=== PATIENT | female | born 1940 | race Caucasian/White ===

== ENCOUNTER → 2023-10-20 | Day surgery (SDC) | payer OTHER | END | disposition home or self-care (01) | LOC: FMAMMOTONE 09:51 | PROVIDERS: ATTEND Physician Assistant | PROC: 0HBT3ZX Excision of Right Breast, Percutaneous Approach, Diagnostic (ICD-10-PCS; principal; 2023-10-20) | DX: D24.1 Benign neoplasm of right breast (principal); N64.89 Other specified disorders of breast; R92.1 Mammographic calcification found on diagnostic imaging of breast | CPT/HCPCS: 19081; 76098-TC-FY; 87899; 88305-TC; A4648 ==

== ENCOUNTER 2024-11-29 12:01 | Inpatient (IN) | payer OTHER ==
[2024-11-29] MEDS: SODIUM CHLORIDE 0.9% 500 ML INFUS.BAG IV ONE (12:45)
[2024-11-29] MEDS: ACETAMINOPHEN 1000 MG/100 ML BAG IVPB ONE (12:45)
[2024-11-29] MEDS: ONDANSETRON 4 MG/2 ML VIAL IVPB ONE (12:45)
[2024-11-29 13:25] LABS: ABSOLUTE IMMATURE GRANULOCYTES 0.16 x10^3/uL (0.0-0.031); BASOPHILS # 0.08 x10^3/uL (0.01-0.08); EOSINOPHIL % 0.1 % (0.7-5.8); EOSINOPHILS # 0.01 x10^3/uL (0.04-0.36); HEMATOCRIT 33.7 % (34.1-44.9); HEMOGLOBIN 10.8 g/dL (11.2-15.7); MEAN CELL VOLUME 88.9 fl (79.4-94.8); MEAN PLT VOLUME 9.1 fl (9.4-12.3); MONOCYTE # 1.05 x10^3/uL (0.24-0.86); MONOCYTE % 5.6 % (4.7-12.5); PLATELET COUNT 555 x10^3/uL (182-369); RDW 13.2 % (12.5-17.0)
[2024-11-29 13:44] LABS: ALBUMIN 3.1 g/dl (3.4-5.0); CALCIUM 10.1 mg/dL (8.5-10.1)
[2024-11-29 13:45] LABS: BLOOD UREA NITROGEN 50.6 mg/dL (7-18); MAGNESIUM 1.4 mg/dL (1.8-2.4)
[2024-11-29 13:48] LABS: CREATININE 1.9 mg/dL (0.55-1.3)
[2024-11-29 13:49] LABS: BILIRUBIN,TOTAL 0.4 mg/dL (0.2-1); TOT PROT 7.2 g/dl (6.4-8.2)
[2024-11-29 14:00] LABS: LACTIC ACID 4.3 mmol/L (0.4-2.0)
[2024-11-29] MEDS ORDERED: VANCOMYCIN 1 GM PREMIX (F) 1 GM/200 ML BAG ONE (14:43)
[2024-11-29] MEDS ORDERED: PIPERACILLIN/TAZOB 3.375 GM 3.375 GM/50 ML BAG IVPB ONE (14:44)
[2024-11-29] MEDS: PIPERACILLIN/TAZOB 3.375 GM 3.375 GM in DEXTROSE 5%-WATER - 50 ML IVPB ONE (14:58)
[2024-11-29] MEDS: LACTATED RINGERS SOLUTION 1000 ML INFUS.BAG IV ONE (15:34)
[2024-11-29] MEDS: VANCOMYCIN 1,000 MG in DEXTROSE 5%-WATER - 250 ML IVPB ONE (16:00)
[2024-11-29 17:24] LABS: EPI CELLS 6 /uL (0-25.1); HYALINE CASTS 0 /uL (0-3.1); PH,URINE 5.5 (5.0-8.0); URINE APPEARANCE CLEAR; URINE BACTERIA 2 /uL (0-1359); URINE BILIRUBIN NEGATIVE (NEGATIVE); URINE COLOR YELLOW; URINE GLUCOSE (UA) 1+ (NEGATIVE); URINE KETONE TRACE (NEGATIVE); URINE LEUK ESTERASE NEGATIVE (NEGATIVE); URINE NITRITE NEGATIVE (NEGATIVE); URINE PROTEIN 1+ (NEGATIVE); URINE RBC 14 /uL (0-23.9); URINE WBC 7 /uL (0-25.8)
[2024-11-29] MEDS ORDERED: ACETAMINOPHEN 500 MG TABLET (FP) PO PRN (19:02)
[2024-11-29] MEDS ORDERED: ONDANSETRON 4 MG/2 ML VIAL IVPUSH PRN (19:02)
[2024-11-29] MEDS ORDERED: MAGNESIUM SULFATE IN WATER 2 GM/50 ML IVPB IVPB ONE (19:30)
[2024-11-29] MEDS: MAGNESIUM SULFATE IN WATER 2 GM/50 ML IVPB IVPB ONE (19:48)
[2024-11-29] MEDS: LACTATED RINGERS SOLUTION 1,000 ML/1,000 ML INFUS.BAG IV SCH (19:48)
[2024-11-29 23:06] VITALS: BMI 22.4
[2024-11-29] MEDS: ATORVASTATIN CA 40 MG TABLET (FP) PO SCH (23:17)
[2024-11-29] MEDS: LATANOPROST 0.005% OPHTH SOLN 2.5ML BOTTLE OU SCH (23:17)
[2024-11-30] MEDS: PIPERACILLIN/TAZOB 2.25 GM 2.25 GM/50 ML BAG IVPB SCH (01:32)
[2024-11-30 09:30] LABS: HEMATOCRIT 26.3 % (34.1-44.9); HEMOGLOBIN 8.6 g/dL (11.2-15.7); MCHC 32.7 g/dl (32.2-35.5); MEAN CELL VOLUME 88.6 fl (79.4-94.8); MEAN PLT VOLUME 8.9 fl (9.4-12.3); PLATELET COUNT 427 x10^3/uL (182-369); RDW 13.2 % (12.5-17.0)
[2024-11-30 09:50] LABS: POTASSIUM 4.8 mmol/L (3.5-5.1)
[2024-11-30 09:55] LABS: CREATININE 1.4 mg/dL (0.55-1.3)
[2024-11-30 09:56] LABS: ALBUMIN 2.4 g/dl (3.4-5.0); BLOOD UREA NITROGEN 44.5 mg/dL (7-18); CALCIUM 8.5 mg/dL (8.5-10.1); PHOSPHOROUS 3.6 mg/dL (2.5-4.9)
[2024-11-30 09:57] LABS: MAGNESIUM 1.6 mg/dL (1.8-2.4); TOT PROT 5.7 g/dl (6.4-8.2)
[2024-11-30 10:01] LABS: BILIRUBIN,TOTAL 0.5 mg/dL (0.2-1)
[2024-11-30] MEDS: SUCRALFATE 1 GM TABLET (FP) PO SCH (10:48)
[2024-11-30] MEDS: PANTOPRAZOLE SODIUM 40 MG VIAL IVPUSH SCH (10:48)
[2024-11-30] MEDS ORDERED: MAGNESIUM 1GM/D5W 100ML - 100 ML IVPB IVPB ONE (14:00)
[2024-11-30] MEDS ORDERED: AMINO ACIDS 4.25%/D5W 1,000 ML IV SCH (15:30)
[2024-11-30] MEDS: THIAMINE HCL 200 MG/2 ML VIAL IVPB SCH (17:07)
[2024-11-30] MEDS: AMINO ACIDS 4.25%/D5W 1,000 ML IV SCH (17:07)
[2024-11-30] MEDS: INSULIN ASPART SLIDING SCALE (NOVOLOG) 1 VIAL SQ SCH (17:48)
[2024-11-30] MEDS: MAGNESIUM 1GM/D5W 100ML - 100 ML IVPB IVPB ONE (17:48)
[2024-12-01] MEDS: ENOXAPARIN NA (PORCINE) 30 MG/0.3 ML DISP.SYRIN SQ SCH (09:16)
[2024-12-01 10:11] LABS: HEMATOCRIT 25.5 % (34.1-44.9); MCHC 31.4 g/dl (32.2-35.5); MEAN CELL VOLUME 90.4 fl (79.4-94.8); MEAN PLT VOLUME 9.1 fl (9.4-12.3); PLATELET COUNT 408 x10^3/uL (182-369); RDW 13.3 % (12.5-17.0)
[2024-12-01 10:40] LABS: POTASSIUM 4.2 mmol/L (3.5-5.1)
[2024-12-01 10:45] LABS: MAGNESIUM 1.6 mg/dL (1.8-2.4)
[2024-12-01 10:49] LABS: CREATININE 1.4 mg/dL (0.55-1.3)
[2024-12-01 10:50] LABS: BLOOD UREA NITROGEN 37.9 mg/dL (7-18); CALCIUM 8.4 mg/dL (8.5-10.1); TOT PROT 5.8 g/dl (6.4-8.2)
[2024-12-01 10:51] LABS: ALBUMIN 2.4 g/dl (3.4-5.0); CHOLESTEROL 111 mg/dL (50-200)
[2024-12-01 10:52] LABS: LDL CHOLESTEROL (ONLY SJRH) 54 mg/dL (5-100)
[2024-12-01 10:53] LABS: PHOSPHOROUS 2.3 mg/dL (2.5-4.9)
[2024-12-01 10:54] LABS: HDL CHOLESTEROL 42 mg/dL (40-60)
[2024-12-01 10:55] LABS: BILIRUBIN,TOTAL 0.4 mg/dL (0.2-1)
[2024-12-01] MEDS: NAPH,MB-DB/K PH,MBDB POWDER PACKET PO ONE (12:44)
[2024-12-01] MEDS: MAGNESIUM 2GM/50ML STERILE WATER IVPB IVPB ONE (12:55)
[2024-12-01] MEDS: CLOTRIMAZOLE 1% CREAM TP SCH (13:43)
[2024-12-02] MEDS: PIPERACILLIN/TAZOB 2.25 GM 2.25 GM/50 ML BAG IVPB SCH (01:57)
[2024-12-02 09:42] LABS: POTASSIUM 4.2 mmol/L (3.5-5.1)
[2024-12-02 09:45] LABS: ABSOLUTE IMMATURE GRANULOCYTES 0.05 x10^3/uL (0.0-0.031); BASOPHILS # 0.09 x10^3/uL (0.01-0.08); EOSINOPHIL % 4.5 % (0.7-5.8); EOSINOPHILS # 0.47 x10^3/uL (0.04-0.36); HEMATOCRIT 26.2 % (34.1-44.9); HEMOGLOBIN 8.1 g/dL (11.2-15.7); MCHC 30.9 g/dl (32.2-35.5); MEAN CELL VOLUME 90.7 fl (79.4-94.8); MEAN PLT VOLUME 9.1 fl (9.4-12.3); MONOCYTE # 0.65 x10^3/uL (0.24-0.86); MONOCYTE % 6.2 % (4.7-12.5); PLATELET COUNT 447 x10^3/uL (182-369); RDW 13.3 % (12.5-17.0)
[2024-12-02 09:47] LABS: Reticulocyte % 1.64 % (0.5-1.7)
[2024-12-02 10:20] LABS: CALCIUM 8.4 mg/dL (8.5-10.1)
[2024-12-02 10:21] LABS: ALBUMIN 2.4 g/dl (3.4-5.0); BLOOD UREA NITROGEN 36.7 mg/dL (7-18)
[2024-12-02 10:24] LABS: CREATININE 1.2 mg/dL (0.55-1.3)
[2024-12-02 10:26] LABS: BILIRUBIN,TOTAL 0.2 mg/dL (0.2-1); TOT PROT 5.8 g/dl (6.4-8.2)
[2024-12-02] MEDS: IRON SUCROSE INJECTION 200 MG in SODIUM CHLORIDE 100 ML IVPB ONE (17:28)
[2024-12-03 08:32] LABS: ABSOLUTE IMMATURE GRANULOCYTES 0.05 x10^3/uL (0.0-0.031); BASOPHILS # 0.07 x10^3/uL (0.01-0.08); EOSINOPHIL % 6.6 % (0.7-5.8); EOSINOPHILS # 0.65 x10^3/uL (0.04-0.36); HEMATOCRIT 24.6 % (34.1-44.9); HEMOGLOBIN 7.7 g/dL (11.2-15.7); MCHC 31.3 g/dl (32.2-35.5); MEAN CELL VOLUME 89.8 fl (79.4-94.8); MEAN PLT VOLUME 9.2 fl (9.4-12.3); MONOCYTE # 0.63 x10^3/uL (0.24-0.86); MONOCYTE % 6.4 % (4.7-12.5); PLATELET COUNT 410 x10^3/uL (182-369); RDW 13.3 % (12.5-17.0)
[2024-12-03 09:44] LABS: POTASSIUM 4.2 mmol/L (3.5-5.1)
[2024-12-03 09:53] LABS: ALBUMIN 2.3 g/dl (3.4-5.0); BLOOD UREA NITROGEN 39.9 mg/dL (7-18); CALCIUM 8.7 mg/dL (8.5-10.1)
[2024-12-03 09:55] LABS: CREATININE 1.2 mg/dL (0.55-1.3)
[2024-12-03 09:57] LABS: BILIRUBIN,TOTAL 0.4 mg/dL (0.2-1); TOT PROT 5.6 g/dl (6.4-8.2)
[2024-12-03 16:34] LABS: MAGNESIUM 1.5 mg/dL (1.8-2.4)
[2024-12-03 17:46] LABS: Reticulocyte % 2.02 % (0.5-1.7)
[2024-12-03] MEDS: POLYETHYLENE GLYCOL (HEALTHYLAX) 3350 17 GM PACKET PO SCH (21:27)
[2024-12-04] MEDS: NAPH,MB-DB/K PH,MBDB POWDER PACKET PO ONE ×2 (07:59→13:39)
[2024-12-04] MEDS: MAGNESIUM SULFATE IN WATER 2 GM/50 ML IVPB IVPB ONE (08:57)
[2024-12-04 10:11] LABS: ABSOLUTE IMMATURE GRANULOCYTES 0.05 x10^3/uL (0.0-0.031); BASOPHILS # 0.08 x10^3/uL (0.01-0.08); EOSINOPHIL % 8.1 % (0.7-5.8); EOSINOPHILS # 0.77 x10^3/uL (0.04-0.36); HEMATOCRIT 26.4 % (34.1-44.9); HEMOGLOBIN 8.3 g/dL (11.2-15.7); MCHC 31.4 g/dl (32.2-35.5); MEAN CELL VOLUME 89.5 fl (79.4-94.8); MEAN PLT VOLUME 8.9 fl (9.4-12.3); MONOCYTE # 0.52 x10^3/uL (0.24-0.86); MONOCYTE % 5.5 % (4.7-12.5); PLATELET COUNT 462 x10^3/uL (182-369); RDW 13.6 % (12.5-17.0)
[2024-12-04 10:15] LABS: INR 1.14 (0.83-1.09); PROTHROMBIN TIME (PATIENT) 12.4 SEC (9.7-13.0)
[2024-12-04 10:37] LABS: POTASSIUM 4.2 mmol/L (3.5-5.1)
[2024-12-04 10:48] LABS: ALBUMIN 2.5 g/dl (3.4-5.0); BLOOD UREA NITROGEN 33.7 mg/dL (7-18); MAGNESIUM 1.9 mg/dL (1.8-2.4)
[2024-12-04 10:51] LABS: CREATININE 1.3 mg/dL (0.55-1.3)
[2024-12-04 10:52] LABS: BILIRUBIN,TOTAL 0.3 mg/dL (0.2-1); PHOSPHOROUS 2.1 mg/dL (2.5-4.9)
[2024-12-04] MEDS: MINERAL OIL/PET HY-PHL TOPICAL OINTMENT 454 GM JAR TP SCH (12:20)
[2024-12-04] MEDS: SODIUM PHOSPHATE - 15 MM in SODIUM CHLORIDE 250 ML IVPB ONE (18:19)
[2024-12-04 22:56] VITALS: RESP 18
[2024-12-05 09:35] LABS: HEMATOCRIT 26.4 % (34.1-44.9); HEMOGLOBIN 8.4 g/dL (11.2-15.7); MCHC 31.8 g/dl (32.2-35.5); MEAN CELL VOLUME 90.7 fl (79.4-94.8); RDW 13.8 % (12.5-17.0)
[2024-12-05 09:51] LABS: POTASSIUM 4.1 mmol/L (3.5-5.1)
[2024-12-05 10:05] LABS: ALBUMIN 2.6 g/dl (3.4-5.0); BLOOD UREA NITROGEN 30.1 mg/dL (7-18); CALCIUM 8.8 mg/dL (8.5-10.1); MAGNESIUM 1.6 mg/dL (1.8-2.4)
[2024-12-05 10:07] LABS: CREATININE 1.3 mg/dL (0.55-1.3)
[2024-12-05 10:08] LABS: PHOSPHOROUS 2.8 mg/dL (2.5-4.9)
[2024-12-05 10:09] LABS: BILIRUBIN,TOTAL 0.4 mg/dL (0.2-1); TOT PROT 6.3 g/dl (6.4-8.2)
[2024-12-05 18:24] LABS: PLATELET COUNT 512 x10^3/uL (182-369)
[2024-12-06 10:03] VITALS: BP 108/56; PULSE 84; TEMP 98
== END 2024-12-06 14:00 | disposition home or self-care (01) | DRG 872 ==
LOC: JER 12:01 → JERBED 17:25 → J6S 21:43
PROVIDERS: ADMIT Internal Medicine; ATTEND Internal Medicine
PROC: B518ZZA Fluoroscopy of Superior Vena Cava, Guidance (ICD-10-PCS; 2024-11-30)
PROC: 0DB78ZX Excision of Stomach, Pylorus, Via Natural or Artificial Opening Endoscopic, Diagnostic (ICD-10-PCS; 2024-11-30)
PROC: 02HV33Z Insertion of Infusion Device into Superior Vena Cava, Percutaneous Approach (ICD-10-PCS; principal; 2024-11-30 14:00)
DX: A41.89 Other specified sepsis (principal); E87.20 Acidosis, unspecified; K31.1 Adult hypertrophic pyloric stenosis; C16.9 Malignant neoplasm of stomach, unspecified; N17.9 Acute kidney failure, unspecified; E44.0 Moderate protein-calorie malnutrition; K25.3 Acute gastric ulcer without hemorrhage or perforation; R65.20 Severe sepsis without septic shock; E11.9 Type 2 diabetes mellitus without complications; I10 Essential (primary) hypertension; E78.5 Hyperlipidemia, unspecified; R21 Rash and other nonspecific skin eruption; K25.9 Gastric ulcer, unspecified as acute or chronic, without hemorrhage or perforation; E83.42 Hypomagnesemia; L89.151 Pressure ulcer of sacral region, stage 1; K59.00 Constipation, unspecified; D64.9 Anemia, unspecified; Z68.22 Body mass index [BMI] 22.0-22.9, adult; K44.9 Diaphragmatic hernia without obstruction or gangrene; K22.2 Esophageal obstruction
CPT/HCPCS: 0241U-QW; 36415; 36569; 71045-TC-FY; 71270-TC; 74176-TC; 80048; 80053; 80061; 81003; 82150; 82378; 82607; 82728; 82962; 83036; 83540; 83550; 83605; 83690; 83735; 84100; 84443; 84484; 85025; 85027; 85610; 86140; 86850; 86900; 86901; 87040; 87086; 88305-TC; 88341-TC; 88342-TC; 93005; 93010; 97116-GP; 97161-GP; 99285-25; J0131; J1756; Q9967

== ENCOUNTER 2024-12-08 21:05 | Inpatient (IN) | payer OTHER ==
[2024-12-08 22:25] LABS: ABSOLUTE IMMATURE GRANULOCYTES 0.18 x10^3/uL (0.0-0.031); BASOPHILS # 0.12 x10^3/uL (0.01-0.08); EOSINOPHIL % 2.6 % (0.7-5.8); EOSINOPHILS # 0.51 x10^3/uL (0.04-0.36); HEMATOCRIT 24.2 % (34.1-44.9); HEMOGLOBIN 7.3 g/dL (11.2-15.7); MCHC 30.2 g/dl (32.2-35.5); MEAN CELL VOLUME 95.3 fl (79.4-94.8); MEAN PLT VOLUME 9.6 fl (9.4-12.3); MONOCYTE # 0.75 x10^3/uL (0.24-0.86); MONOCYTE % 3.8 % (4.7-12.5); PLATELET COUNT 525 x10^3/uL (182-369); RDW 15.3 % (12.5-17.0); Reticulocyte % 3.55 % (0.5-1.7)
[2024-12-08] MEDS: SODIUM CHLORIDE 0.9% 500 ML INFUS.BAG IV ONE (22:31)
[2024-12-08 22:34] LABS: INR 1.13 (0.83-1.09); PROTHROMBIN TIME (PATIENT) 12.3 SEC (9.7-13.0)
[2024-12-08 22:36] LABS: ACTIVATED PTT 34.8 SECONDS (25.2-36.5)
[2024-12-08] MEDS ORDERED: PANTOPRAZOLE SODIUM 80 MG/200 ML BAG IVPB ONE (22:47)
[2024-12-08 22:50] LABS: POTASSIUM 5.1 mmol/L (3.5-5.1)
[2024-12-08 22:52] LABS: ALBUMIN 2.6 g/dl (3.4-5.0); BLOOD UREA NITROGEN 45.1 mg/dL (7-18)
[2024-12-08 22:56] LABS: CREATININE 1.7 mg/dL (0.55-1.3)
[2024-12-08 22:57] LABS: BILIRUBIN,TOTAL 0.3 mg/dL (0.2-1); TOT PROT 6.2 g/dl (6.4-8.2)
[2024-12-08] MEDS: PANTOPRAZOLE SODIUM 40 MG VIAL IVPUSH ONE (22:59)
[2024-12-09 03:01] LABS: ABSOLUTE IMMATURE GRANULOCYTES 0.09 x10^3/uL (0.0-0.031); BASOPHILS # 0.05 x10^3/uL (0.01-0.08); EOSINOPHIL % 1.2 % (0.7-5.8); EOSINOPHILS # 0.17 x10^3/uL (0.04-0.36); HEMOGLOBIN 5.3 g/dL (11.2-15.7); MCHC 31.2 g/dl (32.2-35.5); MEAN CELL VOLUME 92.4 fl (79.4-94.8); MEAN PLT VOLUME 8.4 fl (9.4-12.3); MONOCYTE # 0.76 x10^3/uL (0.24-0.86); MONOCYTE % 5.3 % (4.7-12.5); PLATELET COUNT 381 x10^3/uL (182-369); RDW 15.2 % (12.5-17.0)
[2024-12-09] MEDS: INSULIN ASPART SLIDING SCALE (NOVOLOG) 1 VIAL SQ SCH (06:44)
[2024-12-09] MEDS ORDERED: INSULIN ASPART SLIDING SCALE (NOVOLOG) 1 VIAL SQ SCH (07:00)
[2024-12-09 09:56] LABS: ABSOLUTE IMMATURE GRANULOCYTES 0.11 x10^3/uL (0.0-0.031); BASOPHILS # 0.07 x10^3/uL (0.01-0.08); EOSINOPHIL % 3.5 % (0.7-5.8); EOSINOPHILS # 0.47 x10^3/uL (0.04-0.36); HEMATOCRIT 26.7 % (34.1-44.9); HEMOGLOBIN 8.6 g/dL (11.2-15.7); MCHC 32.2 g/dl (32.2-35.5); MEAN CELL VOLUME 87.5 fl (79.4-94.8); MEAN PLT VOLUME 9.1 fl (9.4-12.3); MONOCYTE # 0.83 x10^3/uL (0.24-0.86); MONOCYTE % 6.1 % (4.7-12.5); PLATELET COUNT 338 x10^3/uL (182-369); RDW 14.4 % (12.5-17.0)
[2024-12-09] MEDS ORDERED: AMOX TR/POT CLAV 875MG/125MG TABLETS (FP) PO SCH (10:00)
[2024-12-09] MEDS: AMPICILLIN NA/SULBACTAM NA 1.5 GM in SODIUM CHLORIDE 100 ML IVPB SCH (10:01)
[2024-12-09] MEDS: PANTOPRAZOLE SODIUM 40 MG VIAL IVPUSH SCH ×2 (10:01→23:06)
[2024-12-09] MEDS: DEXTROSE 5%-NORMAL SALINE 1,000 ML IV SCH ×2 (10:03→16:00)
[2024-12-09 10:23] LABS: BLOOD UREA NITROGEN 53.8 mg/dL (7-18)
[2024-12-09 10:24] LABS: ALBUMIN 2.1 g/dl (3.4-5.0)
[2024-12-09 10:25] LABS: CALCIUM 8.2 mg/dL (8.5-10.1)
[2024-12-09 10:27] LABS: CREATININE 1.2 mg/dL (0.55-1.3)
[2024-12-09 10:28] LABS: BILIRUBIN,TOTAL 0.6 mg/dL (0.2-1); TOT PROT 4.7 g/dl (6.4-8.2)
[2024-12-09] MEDS: SODIUM CHLORIDE 500 ML IV STA (12:00)
[2024-12-09 15:20] LABS: BASOPHILS # 0.08 x10^3/uL (0.01-0.08); EOSINOPHIL % 1.1 % (0.7-5.8); EOSINOPHILS # 0.18 x10^3/uL (0.04-0.36); HEMATOCRIT 22.8 % (34.1-44.9); HEMOGLOBIN 7.4 g/dL (11.2-15.7); MCHC 32.5 g/dl (32.2-35.5); MEAN CELL VOLUME 89.4 fl (79.4-94.8); MEAN PLT VOLUME 9.3 fl (9.4-12.3); MONOCYTE % 5.6 % (4.7-12.5); PLATELET COUNT 317 x10^3/uL (182-369); RDW 15.5 % (12.5-17.0)
[2024-12-09] MEDS: MUPIROCIN 2% TOPICAL OINTMENT FOR DECOLONIZATION NS SCH (23:06)
[2024-12-09] MEDS: CHLORHEXIDINE GLUCONATE 4% CLEANSER FOR DECOLONIZATION TP SCH (23:06)
[2024-12-09] MEDS: LATANOPROST 0.005% OPHTH SOLN 2.5ML BOTTLE OU SCH (23:11)
[2024-12-09] MEDS ORDERED: ACETAMINOPHEN INJECTION 100 ML ONE (23:17)
[2024-12-09] MEDS: ACETAMINOPHEN 1000 MG/100 ML BAG IVPB PRN (23:18)
[2024-12-09 23:25] LABS: POTASSIUM 4.5 mmol/L (3.5-5.1)
[2024-12-09 23:26] LABS: BASOPHILS # 0.09 x10^3/uL (0.01-0.08); EOSINOPHIL % 1.2 % (0.7-5.8); EOSINOPHILS # 0.18 x10^3/uL (0.04-0.36); HEMATOCRIT 29.2 % (34.1-44.9); HEMOGLOBIN 9.8 g/dL (11.2-15.7); MCHC 33.6 g/dl (32.2-35.5); MEAN CELL VOLUME 83.7 fl (79.4-94.8); MEAN PLT VOLUME 9.1 fl (9.4-12.3); MONOCYTE # 1.12 x10^3/uL (0.24-0.86); MONOCYTE % 7.7 % (4.7-12.5); PLATELET COUNT 229 x10^3/uL (182-369); RDW 14.6 % (12.5-17.0)
[2024-12-09 23:27] LABS: CALCIUM 7.9 mg/dL (8.5-10.1)
[2024-12-09 23:28] LABS: BLOOD UREA NITROGEN 55.9 mg/dL (7-18)
[2024-12-10 06:47] LABS: ABSOLUTE IMMATURE GRANULOCYTES 0.04 x10^3/uL (0.0-0.031); BASOPHILS # 0.04 x10^3/uL (0.01-0.08); EOSINOPHIL % 6.8 % (0.7-5.8); EOSINOPHILS # 0.46 x10^3/uL (0.04-0.36); HEMATOCRIT 18.5 % (34.1-44.9); HEMOGLOBIN 5.8 g/dL (11.2-15.7); MCHC 31.4 g/dl (32.2-35.5); MEAN CELL VOLUME 89.4 fl (79.4-94.8); MONOCYTE # 0.51 x10^3/uL (0.24-0.86); MONOCYTE % 7.6 % (4.7-12.5); PLATELET COUNT 143 x10^3/uL (182-369); RDW 16.3 % (12.5-17.0)
[2024-12-10 07:49] LABS: HEMATOCRIT 25.7 % (34.1-44.9); MEAN CELL VOLUME 81.3 fl (79.4-94.8); MEAN PLT VOLUME 8.8 fl (9.4-12.3); PLATELET COUNT 227 x10^3/uL (182-369); RDW 15.1 % (12.5-17.0)
[2024-12-10 11:02] LABS: POTASSIUM 4.4 mmol/L (3.5-5.1)
[2024-12-10 11:04] LABS: CALCIUM 8.1 mg/dL (8.5-10.1)
[2024-12-10 11:09] LABS: BILIRUBIN,TOTAL 0.4 mg/dL (0.2-1); TOT PROT 4.5 g/dl (6.4-8.2)
[2024-12-10] MEDS ORDERED: ACETAMINOPHEN 1000 MG/100 ML BAG IVPB PRN (11:39)
[2024-12-10 14:42] VITALS: BMI 25.9
[2024-12-10 15:14] LABS: ABSOLUTE IMMATURE GRANULOCYTES 0.06 x10^3/uL (0.0-0.031); BASOPHILS # 0.05 x10^3/uL (0.01-0.08); EOSINOPHIL % 7.3 % (0.7-5.8); EOSINOPHILS # 0.76 x10^3/uL (0.04-0.36); HEMOGLOBIN 7.6 g/dL (11.2-15.7); MCHC 34.5 g/dl (32.2-35.5); MEAN CELL VOLUME 81.5 fl (79.4-94.8); MEAN PLT VOLUME 8.8 fl (9.4-12.3); MONOCYTE # 0.65 x10^3/uL (0.24-0.86); MONOCYTE % 6.3 % (4.7-12.5); PLATELET COUNT 205 x10^3/uL (182-369); RDW 15.3 % (12.5-17.0)
[2024-12-10 15:18] LABS: EPI CELLS 11 /uL (0-25.1); HYALINE CASTS 0 /uL (0-3.1); URINE APPEARANCE CLEAR; URINE BACTERIA 17 /uL (0-1359); URINE BILIRUBIN NEGATIVE (NEGATIVE); URINE COLOR YELLOW; URINE GLUCOSE (UA) 3+ (NEGATIVE); URINE KETONE NEGATIVE (NEGATIVE); URINE LEUK ESTERASE 2+ (NEGATIVE); URINE NITRITE NEGATIVE (NEGATIVE); URINE PROTEIN NEGATIVE (NEGATIVE); URINE RBC 18 /uL (0-23.9); URINE UROBILINOGEN 0.2 mg/dL (0.2-1.0); URINE WBC 46 /uL (0-25.8)
[2024-12-10 15:28] LABS: INR 1.13 (0.83-1.09); PROTHROMBIN TIME (PATIENT) 12.3 SEC (9.7-13.0)
[2024-12-10 15:31] LABS: ACTIVATED PTT 27.1 SECONDS (25.2-36.5)
[2024-12-10 18:47] LABS: ABSOLUTE IMMATURE GRANULOCYTES 0.05 x10^3/uL (0.0-0.031); BASOPHILS # 0.04 x10^3/uL (0.01-0.08); EOSINOPHIL % 8.1 % (0.7-5.8); EOSINOPHILS # 0.94 x10^3/uL (0.04-0.36); HEMATOCRIT 20.7 % (34.1-44.9); HEMOGLOBIN 7.2 g/dL (11.2-15.7); MCHC 34.8 g/dl (32.2-35.5); MEAN CELL VOLUME 82.1 fl (79.4-94.8); MEAN PLT VOLUME 8.8 fl (9.4-12.3); MONOCYTE % 5.2 % (4.7-12.5); PLATELET COUNT 266 x10^3/uL (182-369); RDW 15.5 % (12.5-17.0)
[2024-12-10 22:25] LABS: HEMATOCRIT 21.4 % (34.1-44.9); HEMOGLOBIN 7.3 g/dL (11.2-15.7); MCHC 34.1 g/dl (32.2-35.5); MEAN CELL VOLUME 82.6 fl (79.4-94.8); MEAN PLT VOLUME 9.1 fl (9.4-12.3); PLATELET COUNT 288 x10^3/uL (182-369); RDW 15.5 % (12.5-17.0)
[2024-12-10] MEDS: MINERAL OIL/PET HY-PHL TOPICAL OINTMENT 454 GM JAR TP SCH (23:10)
[2024-12-11 07:08] LABS: ABSOLUTE IMMATURE GRANULOCYTES 0.05 x10^3/uL (0.0-0.031); BASOPHILS # 0.04 x10^3/uL (0.01-0.08); EOSINOPHIL % 8.1 % (0.7-5.8); EOSINOPHILS # 0.93 x10^3/uL (0.04-0.36); HEMATOCRIT 19.7 % (34.1-44.9); HEMOGLOBIN 6.6 g/dL (11.2-15.7); MCHC 33.5 g/dl (32.2-35.5); MEAN CELL VOLUME 83.8 fl (79.4-94.8); MEAN PLT VOLUME 9.2 fl (9.4-12.3); MONOCYTE # 0.56 x10^3/uL (0.24-0.86); MONOCYTE % 4.9 % (4.7-12.5); PLATELET COUNT 265 x10^3/uL (182-369); RDW 15.4 % (12.5-17.0)
[2024-12-11 07:26] LABS: CHLORIDE 115 mmol/L (98-107); POTASSIUM 3.7 mmol/L (3.5-5.1); SODIUM 143 mmol/L (136-145)
[2024-12-11 07:32] LABS: ALBUMIN 1.9 g/dl (3.4-5.0); BLOOD UREA NITROGEN 36.9 mg/dL (7-18); CALCIUM 7.6 mg/dL (8.5-10.1); GLUCOSE,RANDOM 178 mg/dL (74-106)
[2024-12-11 07:33] LABS: ANION GAP 5 mmol/L (4-13); CO2 24 mmol/L (21-32)
[2024-12-11 07:36] LABS: CREATININE 0.9 mg/dL (0.55-1.3); SGOT/AST 13 U/L (15-37); SGPT/ALT 15 U/L (13-61)
[2024-12-11 07:37] LABS: BILIRUBIN,TOTAL 0.5 mg/dL (0.2-1); PHOSPHOROUS 2.6 mg/dL (2.5-4.9)
[2024-12-11 07:39] LABS: ALK PHOS 57 U/L (45-117)
[2024-12-11 07:42] LABS: MAGNESIUM 0.9 mg/dL (1.8-2.4)
[2024-12-11] MEDS: MAGNESIUM SULF 50% (8.12 MEQ/2 ML-1 GM VIAL) IVPB ONE ×2 (08:25→11:58)
[2024-12-11] MEDS: INSULIN ASPART SLIDING SCALE (NOVOLOG) 1 VIAL SQ SCH (17:49)
[2024-12-11 18:10] LABS: ABSOLUTE IMMATURE GRANULOCYTES 0.07 x10^3/uL (0.0-0.031); BASOPHILS # 0.04 x10^3/uL (0.01-0.08); EOSINOPHIL % 7.2 % (0.7-5.8); EOSINOPHILS # 0.92 x10^3/uL (0.04-0.36); HEMATOCRIT 27.6 % (34.1-44.9); HEMOGLOBIN 9.4 g/dL (11.2-15.7); MCHC 34.1 g/dl (32.2-35.5); MEAN CELL VOLUME 84.7 fl (79.4-94.8); MEAN PLT VOLUME 8.5 fl (9.4-12.3); MONOCYTE # 0.65 x10^3/uL (0.24-0.86); MONOCYTE % 5.1 % (4.7-12.5); PLATELET COUNT 228 x10^3/uL (182-369); RDW 14.3 % (12.5-17.0)
[2024-12-11] MEDS: LORATADINE 10 MG TABLET PO SCH (18:41)
[2024-12-11] MEDS: DEXTROSE 5%-NORMAL SALINE 1,000 ML IV SCH (21:13)
[2024-12-11] MEDS: AMPICILLIN NA/SULBACTAM NA 1.5 GM in SODIUM CHLORIDE 100 ML IVPB SCH (21:13)
[2024-12-11] MEDS: ZINC OXIDE 20% TOPICAL OINTMENT 30 GM TUBE TP SCH (21:14)
[2024-12-11] MEDS: LATANOPROST 0.005% OPHTH SOLN 2.5ML BOTTLE OU SCH (21:14)
[2024-12-11] MEDS: diphenhydrAMINE HCL 25 MG CAPSULE (FP) PO PRN (21:14)
[2024-12-12 00:20] LABS: ABSOLUTE IMMATURE GRANULOCYTES 0.06 x10^3/uL (0.0-0.031); BASOPHILS # 0.04 x10^3/uL (0.01-0.08); EOSINOPHIL % 8.8 % (0.7-5.8); EOSINOPHILS # 1.02 x10^3/uL (0.04-0.36); HEMOGLOBIN 8.4 g/dL (11.2-15.7); MEAN CELL VOLUME 83.6 fl (79.4-94.8); MONOCYTE # 0.64 x10^3/uL (0.24-0.86); MONOCYTE % 5.5 % (4.7-12.5); PLATELET COUNT 221 x10^3/uL (182-369); RDW 14.6 % (12.5-17.0)
[2024-12-12 06:46] LABS: ABSOLUTE IMMATURE GRANULOCYTES 0.05 x10^3/uL (0.0-0.031); BASOPHILS # 0.03 x10^3/uL (0.01-0.08); EOSINOPHIL % 6.6 % (0.7-5.8); EOSINOPHILS # 0.66 x10^3/uL (0.04-0.36); HEMATOCRIT 20.5 % (34.1-44.9); HEMOGLOBIN 7.1 g/dL (11.2-15.7); MCHC 34.6 g/dl (32.2-35.5); MEAN CELL VOLUME 84.7 fl (79.4-94.8); MEAN PLT VOLUME 9.1 fl (9.4-12.3); MONOCYTE # 0.47 x10^3/uL (0.24-0.86); MONOCYTE % 4.7 % (4.7-12.5); PLATELET COUNT 207 x10^3/uL (182-369); RDW 14.9 % (12.5-17.0)
[2024-12-12 07:08] LABS: POTASSIUM 3.8 mmol/L (3.5-5.1)
[2024-12-12 07:13] LABS: CALCIUM 7.2 mg/dL (8.5-10.1)
[2024-12-12 07:14] LABS: ALBUMIN 1.6 g/dl (3.4-5.0); BLOOD UREA NITROGEN 36.1 mg/dL (7-18); MAGNESIUM 1.5 mg/dL (1.8-2.4)
[2024-12-12 07:17] LABS: CREATININE 0.9 mg/dL (0.55-1.3)
[2024-12-12 07:18] LABS: BILIRUBIN,TOTAL 0.4 mg/dL (0.2-1)
[2024-12-12 07:20] LABS: TOT PROT 3.6 g/dl (6.4-8.2)
[2024-12-12] MEDS ORDERED: MAGNESIUM SULF 50% (8.12 MEQ/2 ML-1 GM VIAL) ONE (12:19)
[2024-12-12] MEDS: MAGNESIUM SULF 50% (8.12 MEQ/2 ML-1 GM VIAL) IVPB ONE (12:23)
[2024-12-12 16:47] LABS: PHOSPHOROUS 2.8 mg/dL (2.5-4.9)
[2024-12-12] MEDS: AMINO ACIDS 4.25%/D5W 1,000 ML IV SCH (21:34)
[2024-12-13 00:56] LABS: BLOOD UREA NITROGEN 41.4 mg/dL (7-18); CALCIUM 7.1 mg/dL (8.5-10.1)
[2024-12-13 00:59] LABS: CREATININE 0.8 mg/dL (0.55-1.3)
[2024-12-13 01:29] LABS: ABSOLUTE IMMATURE GRANULOCYTES 0.08 x10^3/uL (0.0-0.031); BASOPHILS # 0.04 x10^3/uL (0.01-0.08); EOSINOPHIL % 5.1 % (0.7-5.8); EOSINOPHILS # 0.63 x10^3/uL (0.04-0.36); HEMATOCRIT 20.2 % (34.1-44.9); HEMOGLOBIN 6.9 g/dL (11.2-15.7); MCHC 34.2 g/dl (32.2-35.5); MEAN CELL VOLUME 84.9 fl (79.4-94.8); MEAN PLT VOLUME 9.4 fl (9.4-12.3); MONOCYTE # 0.56 x10^3/uL (0.24-0.86); MONOCYTE % 4.6 % (4.7-12.5); PLATELET COUNT 161 x10^3/uL (182-369); RDW 14.6 % (12.5-17.0)
[2024-12-13] MEDS: TRANEXAMIC ACID 1000 MG/10 ML VIAL IVPB ONE (07:31)
[2024-12-13 08:24] LABS: ABSOLUTE IMMATURE GRANULOCYTES 0.07 x10^3/uL (0.0-0.031); BASOPHILS # 0.03 x10^3/uL (0.01-0.08); EOSINOPHILS # 0.35 x10^3/uL (0.04-0.36); HEMOGLOBIN 11.9 g/dL (11.2-15.7); MEAN CELL VOLUME 86.6 fl (79.4-94.8); MEAN PLT VOLUME 8.9 fl (9.4-12.3); MONOCYTE % 4.3 % (4.7-12.5); PLATELET COUNT 181 x10^3/uL (182-369); RDW 16.2 % (12.5-17.0)
[2024-12-13 08:39] LABS: POTASSIUM 4.2 mmol/L (3.5-5.1)
[2024-12-13 08:41] LABS: INR 1.16 (0.83-1.09); PROTHROMBIN TIME (PATIENT) 12.8 SEC (9.7-13.0)
[2024-12-13 08:51] LABS: BLOOD UREA NITROGEN 45.1 mg/dL (7-18); CALCIUM 7.9 mg/dL (8.5-10.1)
[2024-12-13 08:52] LABS: BASOPHILS # 0.05 x10^3/uL (0.01-0.08); EOSINOPHIL % 3.3 % (0.7-5.8); EOSINOPHILS # 0.37 x10^3/uL (0.04-0.36); HEMATOCRIT 33.6 % (34.1-44.9); HEMOGLOBIN 11.5 g/dL (11.2-15.7); MCHC 34.2 g/dl (32.2-35.5); MEAN CELL VOLUME 86.2 fl (79.4-94.8); MEAN PLT VOLUME 9.1 fl (9.4-12.3); MONOCYTE # 0.58 x10^3/uL (0.24-0.86); MONOCYTE % 5.1 % (4.7-12.5); PLATELET COUNT 176 x10^3/uL (182-369); RDW 16.3 % (12.5-17.0)
[2024-12-13 08:52] LABS: MAGNESIUM 1.7 mg/dL (1.8-2.4)
[2024-12-13 08:55] LABS: CREATININE 0.9 mg/dL (0.55-1.3); PHOSPHOROUS 3.6 mg/dL (2.5-4.9)
[2024-12-13 08:56] LABS: BILIRUBIN,TOTAL 0.9 mg/dL (0.2-1); TOT PROT 4.2 g/dl (6.4-8.2)
[2024-12-13] MEDS ORDERED: SUCCINYLCHOLINE CHLORIDE 200 MG/10 ML SYRINGE ONE (09:02)
[2024-12-13] MEDS ORDERED: ROCURONIUM BROMIDE 50 MG/5 ML SYRINGE ONE ×2 (09:02→13:37)
[2024-12-13] MEDS ORDERED: DEXAMETHASONE SOD PHOSPHATE 4 MG/1 ML VIAL ONE ×2 (09:03→16:43)
[2024-12-13] MEDS ORDERED: LIDOCAINE HCL/PF 2% SDV 5ML VIAL ONE (09:03)
[2024-12-13] MEDS ORDERED: ONDANSETRON 4 MG/2 ML VIAL ONE ×2 (09:03→16:41)
[2024-12-13] MEDS ORDERED: MIDAZOLAM HCL 2 MG/2 ML SINGLE DOSE VIAL ONE (09:03)
[2024-12-13] MEDS ORDERED: ETOMIDATE 20 MG/10 ML VIAL IVPUSH ONE (09:09)
[2024-12-13] MEDS ORDERED: CALCIUM CHLORIDE 1 GM/10 ML *DISP.SYRIN ONE (09:11)
[2024-12-13] MEDS: CALCIUM GLUCONATE 10% - 1,000 MG/10 ML VIAL IVPB ONE (09:24)
[2024-12-13] MEDS ORDERED: BUPIVACAINE HCL/PF 0.25% (2.5MG/ML) 10 ML VIAL ONE (10:10)
[2024-12-13 10:23] LABS: ALBUMIN 2.1 g/dl (3.4-5.0)
[2024-12-13] MEDS ORDERED: PROPOFOL 20 ML ONE (12:24)
[2024-12-13] MEDS: ceFAZolin SODIUM 1 GM VIAL IVPB ONE (13:05)
[2024-12-13] MEDS: BUPIVACAINE HCL/PF 0.25% (2.5MG/ML) 10 ML VIAL IJ ONE (13:16)
[2024-12-13 13:20] LABS: ARTERIAL BLD GAS O2 SATURATION 99.6 % (95-98); ARTERIAL BLOOD GAS PO2 272.9 mmHg (80-100); ARTERIAL BLOOD GAS pH 7.306 (7.350-7.450)
[2024-12-13] MEDS ORDERED: ceFAZolin SODIUM 1 GM VIAL ONE (16:38)
[2024-12-13] MEDS ORDERED: SUGAMMADEX SODIUM 200 MG/2 ML VIAL ONE (16:41)
[2024-12-13 18:23] LABS: ABSOLUTE IMMATURE GRANULOCYTES 0.07 x10^3/uL (0.0-0.031); BASOPHILS # 0.04 x10^3/uL (0.01-0.08); EOSINOPHIL % 1.6 % (0.7-5.8); EOSINOPHILS # 0.21 x10^3/uL (0.04-0.36); HEMATOCRIT 28.1 % (34.1-44.9); HEMOGLOBIN 9.9 g/dL (11.2-15.7); MCHC 35.2 g/dl (32.2-35.5); MEAN CELL VOLUME 84.6 fl (79.4-94.8); MEAN PLT VOLUME 9.1 fl (9.4-12.3); MONOCYTE # 0.46 x10^3/uL (0.24-0.86); MONOCYTE % 3.4 % (4.7-12.5); PLATELET COUNT 167 x10^3/uL (182-369); RDW 15.9 % (12.5-17.0)
[2024-12-13 18:32] LABS: INR 1.14 (0.83-1.09); PROTHROMBIN TIME (PATIENT) 12.5 SEC (9.7-13.0)
[2024-12-13 18:42] LABS: POTASSIUM 3.6 mmol/L (3.5-5.1)
[2024-12-13 18:43] LABS: CALCIUM 7.8 mg/dL (8.5-10.1)
[2024-12-13 18:44] LABS: BLOOD UREA NITROGEN 39.4 mg/dL (7-18)
[2024-12-13 18:47] LABS: CREATININE 0.9 mg/dL (0.55-1.3)
[2024-12-13 18:49] LABS: BILIRUBIN,TOTAL 0.4 mg/dL (0.2-1); TOT PROT 4.8 g/dl (6.4-8.2)
[2024-12-13 19:19] LABS: ALBUMIN 2.8 g/dl (3.4-5.0)
[2024-12-13] MEDS: LIDOCAINE 5% TOPICAL PATCH TP ONE (19:24)
[2024-12-13] MEDS: ACETAMINOPHEN 1000 MG/100 ML BAG IVPB PRN (19:25)
[2024-12-13] MEDS: ALBUMIN HUMAN 5% 500 ML IV SOLUTION IV ONE (20:13)
[2024-12-13] MEDS: TRANEXAMIC ACID 1000 MG/10 ML VIAL IVPUSH SCH (20:29)
[2024-12-13] MEDS: FENTANYL CITRATE/PF 50 MCG/ML VIAL IVPUSH PRN (21:02)
[2024-12-13] MEDS: MUPIROCIN 2% TOPICAL OINTMENT FOR DECOLONIZATION NS SCH (21:06)
[2024-12-13] MEDS ORDERED: CHLORHEXIDINE GLUCONATE 4% CLEANSER FOR DECOLONIZATION TP SCH (22:00)
[2024-12-13] MEDS ORDERED: diphenhydrAMINE HCL 25 MG CAPSULE (FP) PO PRN (23:08)
[2024-12-13] MEDS: INSULIN ASPART SLIDING SCALE (NOVOLOG) 1 VIAL SQ SCH (23:18)
[2024-12-13 23:28] LABS: HEMATOCRIT 27.4 % (34.1-44.9); HEMOGLOBIN 9.8 g/dL (11.2-15.7); MCHC 35.8 g/dl (32.2-35.5); MEAN PLT VOLUME 8.9 fl (9.4-12.3); PLATELET COUNT 164 x10^3/uL (182-369); RDW 15.9 % (12.5-17.0)
[2024-12-14] MEDS: LIDOCAINE PATCH REMOVAL MC SCH (06:11)
[2024-12-14] MEDS: PANTOPRAZOLE SODIUM 40 MG VIAL IVPUSH SCH (06:11)
[2024-12-14 06:30] LABS: INR 1.17 (0.83-1.09); PROTHROMBIN TIME (PATIENT) 12.9 SEC (9.7-13.0)
[2024-12-14 06:39] LABS: POTASSIUM 3.7 mmol/L (3.5-5.1)
[2024-12-14 06:41] LABS: ABSOLUTE IMMATURE GRANULOCYTES 0.06 x10^3/uL (0.0-0.031); BASOPHILS # 0.03 x10^3/uL (0.01-0.08); EOSINOPHIL % 0.4 % (0.7-5.8); EOSINOPHILS # 0.04 x10^3/uL (0.04-0.36); HEMATOCRIT 26.8 % (34.1-44.9); HEMOGLOBIN 9.3 g/dL (11.2-15.7); MCHC 34.7 g/dl (32.2-35.5); MEAN CELL VOLUME 84.5 fl (79.4-94.8); MEAN PLT VOLUME 9.2 fl (9.4-12.3); MONOCYTE # 0.42 x10^3/uL (0.24-0.86); MONOCYTE % 4.5 % (4.7-12.5); PLATELET COUNT 164 x10^3/uL (182-369); RDW 16.2 % (12.5-17.0)
[2024-12-14 06:45] LABS: ALBUMIN 2.4 g/dl (3.4-5.0); BLOOD UREA NITROGEN 36.9 mg/dL (7-18); CALCIUM 7.8 mg/dL (8.5-10.1); MAGNESIUM 1.4 mg/dL (1.8-2.4)
[2024-12-14 06:48] LABS: CREATININE 0.9 mg/dL (0.55-1.3)
[2024-12-14 06:49] LABS: BILIRUBIN,TOTAL 0.5 mg/dL (0.2-1)
[2024-12-14 06:50] LABS: TOT PROT 4.5 g/dl (6.4-8.2)
[2024-12-14] MEDS: MAGNESIUM 2GM/50ML STERILE WATER IVPB IVPB ONE (08:28)
[2024-12-14] MEDS: LORATADINE 10 MG TABLET PO SCH (09:12)
[2024-12-14] MEDS: MINERAL OIL/PET HY-PHL TOPICAL OINTMENT 454 GM JAR TP SCH (09:12)
[2024-12-14] MEDS: ZINC OXIDE 20% TOPICAL OINTMENT 30 GM TUBE TP SCH (09:13)
[2024-12-14] MEDS: AMINO ACIDS 4.25%/D5W 1,000 ML IV SCH (10:53)
[2024-12-14] MEDS ORDERED: AMINO ACIDS 4.25%/D5W 1,000 ML IV SCH (11:45)
[2024-12-14] MEDS: PIPERACILLIN/TAZOB 3.375 GM 50 ML IVPB SCH (12:25)
[2024-12-14] MEDS: HEPARIN NA (PORCINE) 5,000 UNITS/ML 1ML VIAL SQ SCH (13:46)
[2024-12-14] MEDS: LATANOPROST 0.005% OPHTH SOLN 2.5ML BOTTLE OU SCH (21:25)
[2024-12-14] MEDS ORDERED: FAT EMULSION/OLIVE/SOY (CLINOLIPID) 250 ML EMULSION IV SCH (22:00)
[2024-12-14] MEDS: FAT EMULSION/OLIVE/SOY/PHOSPHO 250 ML IV SCH (22:23)
[2024-12-15 07:30] LABS: HEMATOCRIT 25.7 % (34.1-44.9); MEAN CELL VOLUME 87.4 fl (79.4-94.8); MEAN PLT VOLUME 9.7 fl (9.4-12.3); PLATELET COUNT 183 x10^3/uL (182-369); RDW 17.3 % (12.5-17.0)
[2024-12-15 07:38] LABS: CALCIUM 7.3 mg/dL (8.5-10.1)
[2024-12-15 07:40] LABS: BLOOD UREA NITROGEN 35.1 mg/dL (7-18); MAGNESIUM 1.4 mg/dL (1.8-2.4)
[2024-12-15 07:42] LABS: CREATININE 0.9 mg/dL (0.55-1.3); PHOSPHOROUS 2.1 mg/dL (2.5-4.9)
[2024-12-15 07:44] LABS: BILIRUBIN,TOTAL 0.4 mg/dL (0.2-1); TOT PROT 4.2 g/dl (6.4-8.2)
[2024-12-15] MEDS: MAGNESIUM SULFATE IN WATER 2 GM/50 ML IVPB IVPB ONE (08:11)
[2024-12-15] MEDS: KCL 20 MEQ PREMIX BAG 20 MEQ/100 ML INFUS.BAG IVPB SCH (09:35)
[2024-12-15 16:25] LABS: ABSOLUTE IMMATURE GRANULOCYTES 0.08 x10^3/uL (0.0-0.031); BASOPHILS # 0.05 x10^3/uL (0.01-0.08); EOSINOPHIL % 4.3 % (0.7-5.8); EOSINOPHILS # 0.53 x10^3/uL (0.04-0.36); HEMOGLOBIN 9.6 g/dL (11.2-15.7); MCHC 34.3 g/dl (32.2-35.5); MEAN CELL VOLUME 86.4 fl (79.4-94.8); MEAN PLT VOLUME 9.6 fl (9.4-12.3); MONOCYTE % 4.9 % (4.7-12.5); PLATELET COUNT 203 x10^3/uL (182-369); RDW 16.9 % (12.5-17.0)
[2024-12-16 06:45] LABS: ABSOLUTE IMMATURE GRANULOCYTES 0.06 x10^3/uL (0.0-0.031); BASOPHILS # 0.05 x10^3/uL (0.01-0.08); EOSINOPHIL % 6.5 % (0.7-5.8); EOSINOPHILS # 0.65 x10^3/uL (0.04-0.36); HEMOGLOBIN 9.2 g/dL (11.2-15.7); MCHC 34.1 g/dl (32.2-35.5); MEAN CELL VOLUME 88.2 fl (79.4-94.8); MEAN PLT VOLUME 9.6 fl (9.4-12.3); MONOCYTE # 0.58 x10^3/uL (0.24-0.86); MONOCYTE % 5.8 % (4.7-12.5); PLATELET COUNT 204 x10^3/uL (182-369); RDW 17.2 % (12.5-17.0)
[2024-12-16 06:55] LABS: POTASSIUM 3.2 mmol/L (3.5-5.1)
[2024-12-16 07:03] LABS: ALBUMIN 1.9 g/dl (3.4-5.0); BLOOD UREA NITROGEN 32.6 mg/dL (7-18); CALCIUM 7.6 mg/dL (8.5-10.1); MAGNESIUM 1.5 mg/dL (1.8-2.4)
[2024-12-16 07:04] LABS: CREATININE 0.9 mg/dL (0.55-1.3); PHOSPHOROUS 2.3 mg/dL (2.5-4.9)
[2024-12-16 07:05] LABS: BILIRUBIN,TOTAL 0.4 mg/dL (0.2-1); TOT PROT 4.3 g/dl (6.4-8.2)
[2024-12-16] MEDS: MAGNESIUM SULFATE IN WATER 2 GM/50 ML IVPB IVPB ONE (09:12)
[2024-12-16] MEDS: KCL 10 MEQ IVPB 10 MEQ/100 ML INFUS.BAG IVPB SCH (09:59)
[2024-12-16] MEDS: THIAMINE HCL 200 MG/2 ML VIAL IVPB SCH (11:36)
[2024-12-16] MEDS: HEPARIN NA (PORCINE) 5,000 UNITS/ML 1ML VIAL SQ SCH ×2 (15:28→21:44)
[2024-12-16 16:04] LABS: ABSOLUTE IMMATURE GRANULOCYTES 0.07 x10^3/uL (0.0-0.031); BASOPHILS # 0.09 x10^3/uL (0.01-0.08); EOSINOPHIL % 4.8 % (0.7-5.8); EOSINOPHILS # 0.53 x10^3/uL (0.04-0.36); HEMATOCRIT 29.8 % (34.1-44.9); HEMOGLOBIN 9.9 g/dL (11.2-15.7); MCHC 33.2 g/dl (32.2-35.5); MEAN PLT VOLUME 9.3 fl (9.4-12.3); MONOCYTE # 0.84 x10^3/uL (0.24-0.86); MONOCYTE % 7.7 % (4.7-12.5); PLATELET COUNT 216 x10^3/uL (182-369); RDW 17.4 % (12.5-17.0)
[2024-12-16] MEDS: PIPERACILLIN/TAZOB 3.375 GM 50 ML IVPB SCH (17:45)
[2024-12-16] MEDS: INSULIN ASPART SLIDING SCALE (NOVOLOG) 1 VIAL SQ SCH (17:49)
[2024-12-16] MEDS: LATANOPROST 0.005% OPHTH SOLN 2.5ML BOTTLE OU SCH (21:45)
[2024-12-16] MEDS: FAT EMULSION/OLIVE/SOY/PHOSPHO 250 ML IV SCH (21:45)
[2024-12-16] MEDS: ZINC OXIDE 20% TOPICAL OINTMENT 30 GM TUBE TP SCH (21:46)
[2024-12-17] MEDS: AMINO ACIDS 4.25%/D5W 1,000 ML IV SCH (03:08)
[2024-12-17 08:17] LABS: ABSOLUTE IMMATURE GRANULOCYTES 0.07 x10^3/uL (0.0-0.031); BASOPHILS # 0.07 x10^3/uL (0.01-0.08); EOSINOPHIL % 6.2 % (0.7-5.8); EOSINOPHILS # 0.58 x10^3/uL (0.04-0.36); HEMATOCRIT 29.5 % (34.1-44.9); MCHC 33.9 g/dl (32.2-35.5); MEAN CELL VOLUME 89.7 fl (79.4-94.8); MEAN PLT VOLUME 9.5 fl (9.4-12.3); MONOCYTE # 0.47 x10^3/uL (0.24-0.86); PLATELET COUNT 281 x10^3/uL (182-369); RDW 17.2 % (12.5-17.0)
[2024-12-17 08:45] LABS: POTASSIUM 3.3 mmol/L (3.5-5.1)
[2024-12-17 08:50] LABS: BLOOD UREA NITROGEN 30.4 mg/dL (7-18)
[2024-12-17 08:51] LABS: MAGNESIUM 1.5 mg/dL (1.8-2.4)
[2024-12-17 08:54] LABS: CREATININE 0.9 mg/dL (0.55-1.3); PHOSPHOROUS 2.1 mg/dL (2.5-4.9)
[2024-12-17 08:55] LABS: BILIRUBIN,TOTAL 0.4 mg/dL (0.2-1)
[2024-12-17] MEDS: POTASSIUM CHLORIDE TABS 20 MEQ TABLET.ER (FP) PO ONE (10:09)
[2024-12-17] MEDS: MAGNESIUM SULFATE IN WATER 2 GM/50 ML IVPB IVPB ONE (10:10)
[2024-12-17] MEDS: PANTOPRAZOLE SODIUM 40 MG VIAL IVPUSH SCH (10:10)
[2024-12-17] MEDS: LORATADINE 10 MG TABLET PO SCH (10:10)
[2024-12-17] MEDS: MINERAL OIL/PET HY-PHL TOPICAL OINTMENT 454 GM JAR TP SCH (10:12)
[2024-12-17] MEDS: ATORVASTATIN CA 40 MG TABLET (FP) PO SCH (21:36)
[2024-12-17] MEDS: diphenhydrAMINE HCL 25 MG CAPSULE (FP) PO PRN (21:37)
[2024-12-18 08:31] LABS: ABSOLUTE IMMATURE GRANULOCYTES 0.06 x10^3/uL (0.0-0.031); BASOPHILS # 0.06 x10^3/uL (0.01-0.08); EOSINOPHILS # 0.51 x10^3/uL (0.04-0.36); HEMATOCRIT 30.3 % (34.1-44.9); HEMOGLOBIN 10.2 g/dL (11.2-15.7); MCHC 33.7 g/dl (32.2-35.5); MEAN CELL VOLUME 90.2 fl (79.4-94.8); MEAN PLT VOLUME 9.4 fl (9.4-12.3); MONOCYTE # 0.61 x10^3/uL (0.24-0.86); MONOCYTE % 7.2 % (4.7-12.5); PLATELET COUNT 314 x10^3/uL (182-369); RDW 17.2 % (12.5-17.0)
[2024-12-18 09:00] LABS: POTASSIUM 3.6 mmol/L (3.5-5.1)
[2024-12-18 09:05] LABS: CALCIUM 7.9 mg/dL (8.5-10.1)
[2024-12-18 09:06] LABS: ALBUMIN 1.9 g/dl (3.4-5.0); BLOOD UREA NITROGEN 30.1 mg/dL (7-18); MAGNESIUM 1.3 mg/dL (1.8-2.4)
[2024-12-18 09:09] LABS: CREATININE 0.9 mg/dL (0.55-1.3); PHOSPHOROUS 2.2 mg/dL (2.5-4.9)
[2024-12-18 09:10] LABS: BILIRUBIN,TOTAL 0.3 mg/dL (0.2-1)
[2024-12-18 09:11] LABS: TOT PROT 4.8 g/dl (6.4-8.2)
[2024-12-18] MEDS: LOSARTAN POTASSIUM 50 MG TABLET PO SCH (09:59)
[2024-12-18] MEDS: THIAMINE 100 MG TABLET PO SCH (11:07)
[2024-12-18] MEDS: MAGNESIUM 2GM/50ML STERILE WATER IVPB IVPB ONE (11:07)
[2024-12-18] MEDS: NAPH,MB-DB/K PH,MBDB POWDER PACKET PO SCH (13:48)
[2024-12-18] MEDS: METHYLENE BLUE 1% 10 MG/1 ML VIAL NR ONE (16:16)
[2024-12-19 09:08] LABS: ABSOLUTE IMMATURE GRANULOCYTES 0.28 x10^3/uL (0.0-0.031); BASOPHILS # 0.06 x10^3/uL (0.01-0.08); EOSINOPHIL % 4.4 % (0.7-5.8); EOSINOPHILS # 0.45 x10^3/uL (0.04-0.36); HEMATOCRIT 32.3 % (34.1-44.9); HEMOGLOBIN 10.6 g/dL (11.2-15.7); MCHC 32.8 g/dl (32.2-35.5); MEAN CELL VOLUME 91.5 fl (79.4-94.8); MEAN PLT VOLUME 9.7 fl (9.4-12.3); MONOCYTE # 0.78 x10^3/uL (0.24-0.86); MONOCYTE % 7.6 % (4.7-12.5); PLATELET COUNT 386 x10^3/uL (182-369); RDW 17.5 % (12.5-17.0)
[2024-12-19 09:26] LABS: POTASSIUM 3.8 mmol/L (3.5-5.1)
[2024-12-19 09:39] LABS: ALBUMIN 2.2 g/dl (3.4-5.0); BLOOD UREA NITROGEN 31.5 mg/dL (7-18)
[2024-12-19 09:40] LABS: CALCIUM 8.7 mg/dL (8.5-10.1)
[2024-12-19 09:41] LABS: MAGNESIUM 1.7 mg/dL (1.8-2.4)
[2024-12-19 09:42] LABS: CREATININE 0.9 mg/dL (0.55-1.3)
[2024-12-19 09:43] LABS: PHOSPHOROUS 2.9 mg/dL (2.5-4.9)
[2024-12-19 09:44] LABS: BILIRUBIN,TOTAL 0.5 mg/dL (0.2-1); TOT PROT 5.3 g/dl (6.4-8.2)
[2024-12-19] MEDS: MULTIVITAMINS (DAILY MVI) TABLET (FP) PO SCH (10:23)
[2024-12-19] MEDS: MAGNESIUM 2GM/50ML STERILE WATER IVPB IVPB ONE (11:36)
[2024-12-20 09:44] LABS: ABSOLUTE IMMATURE GRANULOCYTES 0.06 x10^3/uL (0.0-0.031); BASOPHILS # 0.02 x10^3/uL (0.01-0.08); EOSINOPHIL % 2.3 % (0.7-5.8); EOSINOPHILS # 0.22 x10^3/uL (0.04-0.36); HEMATOCRIT 32.8 % (34.1-44.9); HEMOGLOBIN 10.7 g/dL (11.2-15.7); MCHC 32.6 g/dl (32.2-35.5); MEAN CELL VOLUME 90.6 fl (79.4-94.8); MEAN PLT VOLUME 10.2 fl (9.4-12.3); MONOCYTE % 6.3 % (4.7-12.5); PLATELET COUNT 406 x10^3/uL (182-369); RDW 17.3 % (12.5-17.0)
[2024-12-20 10:08] LABS: POTASSIUM 4.1 mmol/L (3.5-5.1)
[2024-12-20 10:18] LABS: CALCIUM 8.8 mg/dL (8.5-10.1)
[2024-12-20 10:19] LABS: ALBUMIN 2.2 g/dl (3.4-5.0); BLOOD UREA NITROGEN 27.8 mg/dL (7-18); MAGNESIUM 1.6 mg/dL (1.8-2.4)
[2024-12-20 10:22] LABS: CREATININE 0.8 mg/dL (0.55-1.3); PHOSPHOROUS 3.8 mg/dL (2.5-4.9)
[2024-12-20 10:23] LABS: BILIRUBIN,TOTAL 0.5 mg/dL (0.2-1); TOT PROT 5.4 g/dl (6.4-8.2)
[2024-12-20 10:55] VITALS: RESP 18
[2024-12-20] MEDS: ENOXAPARIN NA (PORCINE) 40 MG/0.4 ML DISP.SYRIN SQ SCH (14:31)
[2024-12-20] MEDS: MAGNESIUM 2GM/50ML STERILE WATER IVPB IVPB ONE (17:04)
[2024-12-20] MEDS: AMOX TR/POT CLAV 500MG/125MG TABLETS (FP) PO SCH (17:04)
[2024-12-20] MEDS ORDERED: AMOX TR/POT CLAV 250MG/125MG TABLETS PO SCH (17:30)
[2024-12-21 09:07] LABS: ABSOLUTE IMMATURE GRANULOCYTES 0.06 x10^3/uL (0.0-0.031); BASOPHILS # 0.02 x10^3/uL (0.01-0.08); EOSINOPHIL % 3.1 % (0.7-5.8); EOSINOPHILS # 0.31 x10^3/uL (0.04-0.36); HEMATOCRIT 29.9 % (34.1-44.9); HEMOGLOBIN 9.7 g/dL (11.2-15.7); MCHC 32.4 g/dl (32.2-35.5); MEAN CELL VOLUME 91.4 fl (79.4-94.8); MEAN PLT VOLUME 9.1 fl (9.4-12.3); MONOCYTE # 0.75 x10^3/uL (0.24-0.86); MONOCYTE % 7.5 % (4.7-12.5); PLATELET COUNT 399 x10^3/uL (182-369); RDW 17.1 % (12.5-17.0)
[2024-12-21 09:44] LABS: POTASSIUM 4.1 mmol/L (3.5-5.1)
[2024-12-21] MEDS: PANTOPRAZOLE 40 MG TABLET PO SCH (09:52)
[2024-12-21 10:11] LABS: CALCIUM 9.1 mg/dL (8.5-10.1)
[2024-12-21 10:12] LABS: ALBUMIN 2.1 g/dl (3.4-5.0); BLOOD UREA NITROGEN 22.2 mg/dL (7-18); MAGNESIUM 1.7 mg/dL (1.8-2.4)
[2024-12-21 10:13] LABS: BILIRUBIN,TOTAL 0.4 mg/dL (0.2-1); CREATININE 0.9 mg/dL (0.55-1.3)
[2024-12-21 10:14] LABS: PHOSPHOROUS 3.7 mg/dL (2.5-4.9)
[2024-12-21 10:15] LABS: TOT PROT 5.1 g/dl (6.4-8.2)
[2024-12-21] MEDS: MAGNESIUM 2GM/50ML STERILE WATER IVPB IVPB ONE (13:45)
[2024-12-21 14:00] VITALS: BP 108/51; PULSE 76; TEMP 97.7
== END 2024-12-21 16:45 | disposition home or self-care (01) | DRG 327 ==
LOC: JER 21:05 → JERBED 23:53 → J2W 12-09 04:24 → JICU 12-09 20:09 → J6S 12-16 13:07 → J8W 12-17 20:21
PROVIDERS: ADMIT Internal Medicine; ATTEND Nurse Practitioner Family
PROC: 0D164ZA Bypass Stomach to Jejunum, Percutaneous Endoscopic Approach (ICD-10-PCS; principal; 2024-12-10)
PROC: 0DB64ZZ Excision of Stomach, Percutaneous Endoscopic Approach (ICD-10-PCS; 2024-12-10)
PROC: 04L33DZ Occlusion of Hepatic Artery with Intraluminal Device, Percutaneous Approach (ICD-10-PCS; 2024-12-10)
PROC: 0DB64ZZ Excision of Stomach, Percutaneous Endoscopic Approach (ICD-10-PCS; 2024-12-10)
PROC: 4A133B1 Monitoring of Arterial Pressure, Peripheral, Percutaneous Approach (ICD-10-PCS; 2024-12-10)
PROC: 4A133J1 Monitoring of Arterial Pulse, Peripheral, Percutaneous Approach (ICD-10-PCS; 2024-12-10)
PROC: 30233K1 Transfusion of Nonautologous Frozen Plasma into Peripheral Vein, Percutaneous Approach (ICD-10-PCS; 2024-12-10)
PROC: 30233N1 Transfusion of Nonautologous Red Blood Cells into Peripheral Vein, Percutaneous Approach (ICD-10-PCS; 2024-12-10)
PROC: 30233R1 Transfusion of Nonautologous Platelets into Peripheral Vein, Percutaneous Approach (ICD-10-PCS; 2024-12-10)
DX: K25.4 Chronic or unspecified gastric ulcer with hemorrhage (principal); D62 Acute posthemorrhagic anemia; N17.9 Acute kidney failure, unspecified; I10 Essential (primary) hypertension; E11.9 Type 2 diabetes mellitus without complications; E78.5 Hyperlipidemia, unspecified; D50.9 Iron deficiency anemia, unspecified; G24.5 Blepharospasm; D72.829 Elevated white blood cell count, unspecified; K31.89 Other diseases of stomach and duodenum
CPT/HCPCS: 0241U-QW; 36415; 36430; 36600; 37244; 71045-TC-FY; 74174-TC; 74246-TC-FY; 76000-TC-FY; 76937; 80048; 80053; 81003; 82272; 82550; 82803; 82962; 83036; 83605; 83735; 84100; 84484; 85025; 85027; 85384; 85610; 85730; 86922; 88307-TC; 93005; 93010; 94010; 97116-GP; 97162-GP; 99285-25; C1769; C1887; C1894; J0131; J1644; P9017; P9034; P9037; P9038; P9058